=== PATIENT | male | born 1965 | race Two or more races ===

== ENCOUNTER 2019-02-09 13:24 | Inpatient (IN) ==
[2019-02-09] MEDS ORDERED: PANTOPRAZOLE 40 MG VIAL IV STA (15:41)
[2019-02-09 15:57] LABS: Basophils # 0.1 10*3/uL (0.0-0.2); Basophils % 0.6 % (0.0-0.8); Eosinophils # 0.1 10*3/uL (0.0-0.87); Eosinophils % 1.2 % (0.00-10.9); Hematocrit 36.5 VOL% (42.0-52.0); Immature Granulocytes % 0.4 %; Immature Granulocytes Absolute 0.03 #; Lymphocytes # 3.5 10*3/uL (1.4-4.0); Lymphocytes % 43.6 % (21.2-54.2); Mean Corpuscular HGB Conc 32.9 GM/DL (32-36); Mean Corpuscular Volume 89.5 FL (87-102); Mean Platelet Volume 9.1 FL (9.6-12.0); Monocytes % 7.6 % (1.7-12.7); Neutrophils % 46.6 % (38.7-73.9); Platelet Count 228 T/CUMM (130-400); Red Blood Count 4.08 MC/CUMM (3.8-5.5); Red Cell Distribution Width 12.8 % (9.3-17.3); White Blood Count 8.1 T/CUMM (4-12)
[2019-02-09 16:10] LABS: PT Patient Result 10.5 SECS (9.6-12.2)
[2019-02-09 16:18] LABS: Alanine Aminotransferase 28 U/L (16-61); Albumin 3.5 G/DL (3.4-5.0); Alkaline Phosphatase 62 U/L (45-117); Aspartate Amino Transferase 12 U/L (0-37); Bilirubin,Total < 0.39 MG/DL (0.2-1.0); Blood Urea Nitrogen 28 MG/DL (7-18); Calcium 8.4 MG/DL (8.5-10.1); Estimated Glom Filtration Rate 113 ML/MIN; Glucose 111 MG/DL (74-106); Osmolality,Calculated 292.8 MOS/KG (273-304); Total Protein 6.7 G/DL (6.4-8.3)
[2019-02-09] MEDS ORDERED: SODIUM CHLORIDE 0.9% 1,000 ML IV STA (17:05)
[2019-02-09] MEDS ORDERED: ONDANSETRON 4 MG/2 ML VIAL IV PRN (17:46)
[2019-02-09] MEDS ORDERED: INFLUENZA VIRUS VACCINE 0.5 ML SYRINGE IM ONE (19:06)
[2019-02-09] MEDS: SODIUM CHLORIDE 0.9% 1,000 ML IV SCH (19:09)
[2019-02-09 21:50] LABS: Hematocrit 28.7 VOL% (42.0-52.0); Hemoglobin 9.2 GM/DL (14.0-18.0)
[2019-02-10] MEDS: SODIUM CHLORIDE 0.9% 1,000 ML IV SCH ×3 (03:14→19:17)
[2019-02-10 04:37] LABS: Basophils % 0.4 % (0.0-0.8); Eosinophils # 0.1 10*3/uL (0.0-0.87); Hematocrit 24.9 VOL% (42.0-52.0); Hemoglobin 8.2 GM/DL (14.0-18.0); Immature Granulocytes % 0.6 %; Immature Granulocytes Absolute 0.04 #; Lymphocytes # 2.2 10*3/uL (1.4-4.0); Lymphocytes % 33.1 % (21.2-54.2); Mean Corpuscular HGB Conc 32.9 GM/DL (32-36); Mean Corpuscular Volume 89.2 FL (87-102); Mean Platelet Volume 9.4 FL (9.6-12.0); Monocytes % 6.9 % (1.7-12.7); Platelet Count 181 T/CUMM (130-400); Red Blood Count 2.79 MC/CUMM (3.8-5.5); Red Cell Distribution Width 12.8 % (9.3-17.3); White Blood Count 6.7 T/CUMM (4-12)
[2019-02-10 04:59] LABS: Calcium 7.6 MG/DL (8.5-10.1); Osmolality,Calculated 292.8 MOS/KG (273-304)
[2019-02-10] MEDS: lisinopriL 10 MG TABLET PO SCH (08:03)
[2019-02-10] MEDS: NICOTINE 14 MG/24 HR PATCH TRANSDERM SCH (08:34)
[2019-02-10] MEDS: PANTOPRAZOLE 40 MG VIAL IV SCH (08:35)
[2019-02-10] MEDS ORDERED: PANTOPRAZOLE 40 MG TABLET PO SCH (09:00)
[2019-02-10 16:38] LABS: Hematocrit 23.8 VOL% (42.0-52.0); Hemoglobin 7.8 GM/DL (14.0-18.0)
[2019-02-10] MEDS ORDERED: SULFAMETHOX/TRIMETHOPRIM 800-160 MG TABLET ONE (18:56)
[2019-02-10 21:58] LABS: Hemoglobin 7.7 GM/DL (14.0-18.0)
[2019-02-11] MEDS: SODIUM CHLORIDE 0.9% 1,000 ML IV SCH ×2 (03:10→11:38)
[2019-02-11 06:19] LABS: Hematocrit 24.3 VOL% (42.0-52.0); Hemoglobin 8.1 GM/DL (14.0-18.0)
[2019-02-11] MEDS: NICOTINE 14 MG/24 HR PATCH TRANSDERM SCH (09:25)
[2019-02-11] MEDS ORDERED: propofoL 200 MG/20 ML VIAL IV ONE (10:00)
[2019-02-11] MEDS ORDERED: LIDOCAINE 100 MG/5 ML SYRINGE ONE (10:00)
[2019-02-11] MEDS: PANTOPRAZOLE 40 MG VIAL IV SCH (11:38)
[2019-02-11] MEDS: lisinopriL 10 MG TABLET PO SCH (11:41)
[2019-02-11 14:51] VITALS: BP 129/83
== END 2019-02-11 17:28 | disposition home or self-care (01) | DRG 378 ==
LOC: N.ED 13:24 → N.EDINP 17:46 → N.4E 18:12
PROVIDERS: ADMIT Internal Medicine; ATTEND Internal Medicine